=== PATIENT | female | born 1955 | race Caucasian/White ===

== ENCOUNTER 2020-05-10 19:00 | Inpatient (IN) | payer OTHER ==
[~2020-05-10] VITALS: Ht 167.6 cm; Wt 66.0 kg
[2020-05-10] MEDS ORDERED: NOREPINEPHRINE 8 MG/250ML KIT 250 ML IV ONE (19:31)
[2020-05-10] MEDS: NOREPINEPHRINE 8 MG/250ML KIT 250 ML IV SCH (19:58)
[2020-05-10] MEDS ORDERED: AMIODARONE HCL 150 MG in D5W 5% 100 ML IV ONE (20:00)
[2020-05-10] MEDS ORDERED: DOXYCYCLINE 100MG/250ML 250 ML IV ONE (20:15)
[2020-05-10] MEDS ORDERED: DexAMETHasone SOD PHOS 10MG/1ML VIAL INJ IV ONE (20:15)
[2020-05-10 20:30] VITALS: BP 109/62
[2020-05-10 20:33] LABS: Hematocrit 36.8 % (36.0-46.0); Hemoglobin 11.7 g/dL (12.2-16.2); Mean Corpuscular Hgb Conc. 31.9 g/dL (32.0-36.0); Mean Corpuscular Volume 94.1 fL (80.0-100.0); Red Blood Cells 3.91 10^6/uL (4.0-5.20); Red Cell Distribution Width 14.6 % (11.8-14.3); White Blood Cell 16.8 10^3/uL (4.4-10.8)
[2020-05-10 20:35] LABS: Basophils % (manual) 0 (0.0-2.0); Blast Cells 0; Eosinophils % (manual) 0 (0-7); Myelocytes % 0; Promyelocytes % 0; Reactive Lymphocytes 0
[2020-05-10] MEDS ORDERED: AMIODARONE HCL (50 MG/ ML) 3 ML VIAL IV ONE (20:48)
[2020-05-10 20:56] LABS: Anion Gap 15 (5-15); BUN/Creatinine Ratio 8.5; Blood Alcohol < 3.0 mg/dL (0-5); Blood Urea Nitrogen 15 mg/dL (7-18); Calcium 9.1 mg/dL (8.5-10.1); Carbon Dioxide 23 mmol/L (21-32); Chloride 102 mmol/L (98-107); GFR African American 37 mL/min; GFR Non-African American 31 mL/min; Glucose 309 mg/dL (74-106); Potassium 5.2 mmol/L (3.5-5.1); Salicylate < 1.7 mg/dL (2.8-20.0); Sodium 140 mmol/L (136-145)
[2020-05-10 20:59] LABS: Lactic Acid w/Reflex 10.8 mmol/L (0.4-2.0)
[2020-05-10] MEDS ORDERED: SODIUM BICARBONATE 50ML VIAL 50 ML in SOD CHL 0.45% 1,000 ML IV ONE (21:00)
[2020-05-10] MEDS ORDERED: SODIUM BICARBONATE 8.4 % INJ 50ML VIAL IV ONE ×2 (21:00→21:43)
[2020-05-10 21:05] LABS: Acetaminophen < 2.0 ug/mL (10-30); Alanine Aminotransferase 1855 U/L (13-56); Alkaline Phosphatase 118 U/L (45-117); Bilirubin, Total 0.4 mg/dL (0.2-1.0); Total Protein 6.3 g/dL (6.4-8.2)
[2020-05-10 21:17] LABS: Aspartate Aminotransferase 2108 U/L (15-37)
[2020-05-10 21:22] LABS: Band Neutrophils % (manual) 9; Lymphocytes % (manual) 18 (10.0-50.0); Metamyelocytes % 5; Monocytes % (manual) 1 (0-12)
[2020-05-10 21:23] LABS: INR 1.26 (0.9-1.15); Partial Thromboplastin Time 39.8 sec (23.0-31.2)
[2020-05-10 22:00] VITALS: BP 122/81
[2020-05-10 23:50] LABS: Urine Bacteria FEW /hpf (None Seen); Urine Blood 3+ /uL (Negative); Urine Hyaline Cast FEW /lpf (0 - 2); Urine Mucus FEW (None Seen); Urine Specific Gravity 1.011 (1.001-1.035); Urine WBC 192 /hpf (0 - 5)
[2020-05-10 23:53] LABS: Alcohol, Urine < 3.0 mg/dL (0-10); Amphetamine Screen, Urine NEGATIVE (NEGATIVE); Barbiturate Scree,Urine NEGATIVE (NEGATIVE); Benzodiazephine Screen, Urine NEGATIVE (NEGATIVE); Cocaine Screen, Urine NEGATIVE (NEGATIVE); Opiate Scree,Urine NEGATIVE (NEGATIVE); Phencyclidine Screen, Urine NEGATIVE (NEGATIVE)
[2020-05-11] VITALS (93 sets, daily range): BP systolic 71–146; BP diastolic 33–122
[2020-05-11] MEDS ORDERED: HEPARIN SODIUM (PORCINE) 5000 UNITS/ML 1ML VIAL ONE (01:03)
[2020-05-11] MEDS ORDERED: ASPirin 81 mg TAB ONE (01:06)
[2020-05-11] MEDS ORDERED: HEPARIN SODIUM (PORCINE) 5000 UNITS/ML 1ML VIAL IV ONE (01:15)
[2020-05-11] MEDS ORDERED: ASPirin 81 mg TAB NG ONE (01:15)
[2020-05-11] MEDS ORDERED: LIDOCAINE 2%HCL (LOCAL ANESTH.) INJ 20ML MDV ONE (01:22)
[2020-05-11] MEDS ORDERED: HEPARIN IN NS 1000Units/500mL 1,500 ML ONE (01:22)
[2020-05-11] MEDS ORDERED: SODIUM CHL 0.9% 50 ML ONE (01:22)
[2020-05-11] MEDS ORDERED: ANGIOMAX 250 MG VIAL IV ONE (01:22)
[2020-05-11] MEDS ORDERED: IODIXANOL 320MG/ML 100ML BTL IV ONE (01:22)
[2020-05-11] MEDS ORDERED: EPINEPHrine HCL 250 ML IV ONE ×3 (01:24→16:52)
[2020-05-11 01:53] LABS: BUN/Creatinine Ratio 11.3; Calcium 6.5 mg/dL (8.5-10.1); Potassium 4.1 mmol/L (3.5-5.1)
[2020-05-11 03:19] LABS: Cannabinoid Screen, Urine POSITIVE (NEGATIVE)
[2020-05-11] MEDS: PHENYLEPHRINE IV 250 ML IV SCH ×5 (04:20→17:19)
[2020-05-11] MEDS ORDERED: NITROGLYCERIN 0.4 MG SL TAB SL PRN (04:30)
[2020-05-11] MEDS ORDERED: MORPHINE SULFATE INJECTION 2 MG/ML SYRG IV PRN (04:30)
[2020-05-11] MEDS ORDERED: SODIUM BICARBONATE 8.4 % INJ 50ML VIAL IV ONE ×3 (07:06→19:15)
[2020-05-11] MEDS ORDERED: SODIUM BICARBONATE 8.4% INJ 50ML SYRINGE ONE ×2 (07:08→19:05)
[2020-05-11] MEDS ORDERED: TIZA4CAP PO (11:16)
[2020-05-11] MEDS ORDERED: TAPE100T24 PO (11:16)
[2020-05-11] MEDS ORDERED: OMEP20TA PO (11:16)
[2020-05-11] MEDS ORDERED: GABA-339 PO (11:16)
[2020-05-11] MEDS ORDERED: AMIT25TA12 PO (11:16)
[2020-05-11] MEDS ORDERED: FENT25DI2 TD (11:16)
[2020-05-11] MEDS ORDERED: FLUO1TAB14 PO (11:16)
[2020-05-11] MEDS ORDERED: ATOR20TA50 PO (11:16)
[2020-05-11] MEDS ORDERED: ACYC1CAP23 PO (11:16)
[2020-05-11] MEDS: VASOPRESSIN 50 UNITS in D5W 5% 247.5 ML IV SCH (13:05)
[2020-05-11] MEDS: PIPERACILLIN-TAZOB 3.375GM 100 ML IV SCH ×2 (13:37→21:25)
[2020-05-11] MEDS ORDERED: EPINEPHrine HCL 250 ML IV SCH (14:00)
[2020-05-11] MEDS: SODIUM BICARBONATE 50ML VIAL 50 ML in D5W/SOD CHL 0.45% 1,000 ML IV SCH (17:08)
[2020-05-11] MEDS: NOREPINEPHRINE 8 MG/250ML KIT 250 ML IV SCH (17:15)
[2020-05-11] MEDS ORDERED: EPINEPHrine HCL INJECTION 8 MG in D5W 5% 242 ML IV SCH (19:30)
[2020-05-11] MEDS ORDERED: NOREPINEPHRINE BITARTRATE 16 MG in SODIUM CHL 0.9% 234 ML IV SCH (19:30)
[2020-05-11] MEDS: PHENYLEPHRINE INJ 40 MG in SODIUM CHL 0.9% 246 ML IV SCH (21:05)
[2020-05-11] MEDS ORDERED: VASOPRESSIN 20 UNIT/ML ONE (23:33)
[2020-05-12] VITALS (21 sets, daily range): BP systolic 52–184; BP diastolic 14–119
[2020-05-12] MEDS: SODIUM BICARBONATE 50ML VIAL 50 ML in D5W/SOD CHL 0.45% 1,000 ML IV SCH (00:30)
[2020-05-12] MEDS: PHENYLEPHRINE INJ 40 MG in SODIUM CHL 0.9% 246 ML IV SCH ×2 (01:00→05:00)
[2020-05-12] MEDS: VASOPRESSIN 50 UNITS in D5W 5% 247.5 ML IV SCH (01:00)
[2020-05-12 04:27] LABS: Hemoglobin 11.1 g/dL (12.2-16.2)
[2020-05-12 04:31] LABS: Hematocrit 36.4 % (36.0-46.0); Mean Corpuscular Hemoglobin 30.2 pg (28.0-32.0); Mean Corpuscular Hgb Conc. 30.5 g/dL (32.0-36.0); Mean Corpuscular Volume 99.1 fL (80.0-100.0); Red Blood Cells 3.67 10^6/uL (4.0-5.20); Red Cell Distribution Width 14.9 % (11.8-14.3); White Blood Cell 13.5 10^3/uL (4.4-10.8)
[2020-05-12 04:37] LABS: Basophils % (manual) 0 (0.0-2.0); Blast Cells 0; Eosinophils % (manual) 0 (0-7); Promyelocytes % 0; Reactive Lymphocytes 0
[2020-05-12 04:42] LABS: Calcium 6.9 mg/dL (8.5-10.1); Potassium 4.4 mmol/L (3.5-5.1)
[2020-05-12 05:02] LABS: BUN/Creatinine Ratio 10.5; Bilirubin, Total 2.2 mg/dL (0.2-1.0); Total Protein 4.6 g/dL (6.4-8.2)
[2020-05-12 05:18] LABS: Band Neutrophils % (manual) 25; Lymphocytes % (manual) 31 (10.0-50.0); Metamyelocytes % 12; Monocytes % (manual) 3 (0-12); Myelocytes % 6
[2020-05-12] MEDS: PIPERACILLIN-TAZOB 3.375GM 100 ML IV SCH (06:39)
[2020-05-12] MEDS ORDERED: SODIUM BICARBONATE 8.4% INJ 50ML SYRINGE IV ONE (12:26)
[2020-05-12] MEDS ORDERED: EPINEPHrine HCL 1 MG/10 ML SYRG IV ONE (12:26)
== END 2020-05-12 14:02 | DRG 871 ==
LOC: EDBD 19:00 → ER 19:05 → ICU WEST 05-11 04:22
PROVIDERS: ADMIT Specialist; ATTEND Hospitalist
PROC: 4A023N7 Measurement of Cardiac Sampling and Pressure, Left Heart, Percutaneous Approach (ICD-10-PCS; principal; 2020-05-11)
PROC: 5A1945Z Respiratory Ventilation, 24-96 Consecutive Hours (ICD-10-PCS; 2020-05-11)
PROC: 0BH17EZ Insertion of Endotracheal Airway into Trachea, Via Natural or Artificial Opening (ICD-10-PCS; 2020-05-11)
PROC: B211YZZ Fluoroscopy of Multiple Coronary Arteries using Other Contrast (ICD-10-PCS; 2020-05-11)
PROC: B215YZZ Fluoroscopy of Left Heart using Other Contrast (ICD-10-PCS; 2020-05-11)
PROC: B41CYZZ Fluoroscopy of Pelvic Arteries using Other Contrast (ICD-10-PCS; 2020-05-11)
PROC: 5A12012 Performance of Cardiac Output, Single, Manual (ICD-10-PCS; 2020-05-11)
PROC: 06HM33Z Insertion of Infusion Device into Right Femoral Vein, Percutaneous Approach (ICD-10-PCS; 2020-05-11)
PROC: B51B1ZA Fluoroscopy of Right Lower Extremity Veins using Low Osmolar Contrast, Guidance (ICD-10-PCS; 2020-05-11)
DX: A41.9 Sepsis, unspecified organism (principal); I21.19 ST elevation (STEMI) myocardial infarction involving other coronary artery of inferior wall; J96.01 Acute respiratory failure with hypoxia; G93.6 Cerebral edema; G93.5 Compression of brain; G93.41 Metabolic encephalopathy; G93.1 Anoxic brain damage, not elsewhere classified; I44.2 Atrioventricular block, complete; R57.9 Shock, unspecified; J90 Pleural effusion, not elsewhere classified; E87.4 Mixed disorder of acid-base balance; I46.9 Cardiac arrest, cause unspecified; Z66 Do not resuscitate; Z20.822 Contact with and (suspected) exposure to COVID-19; M54.2 Cervicalgia; R00.1 Bradycardia, unspecified; G89.4 Chronic pain syndrome; I25.10 Atherosclerotic heart disease of native coronary artery without angina pectoris; Z82.3 Family history of stroke; Z82.49 Family history of ischemic heart disease and other diseases of the circulatory system; Z85.118 Personal history of other malignant neoplasm of bronchus and lung
CPT/HCPCS: 31500; 36415; 36600; 51702; 70450; 71045; 75710; 76705; 80048; 80053; 80307; 80320; 80329; 81001; 82805; 83605; 83735; 83880; 84443; 84484; 85007; 85027; 85379; 85610; 85730; 86850; 86900; 86901; 87040; 87070; 87077; 87081; 87086; 87088; 87186; 87205; 87426; 93005; 93458; 94002; 94003; 96365; 96366; 96375; 99152; 99153; 99291; G0378; J0171; J1100; J2543; J3490; J7060; Q9967